=== PATIENT | female | born 1955 | race Caucasian/White ===

== ENCOUNTER 2020-03-15 18:05 | Inpatient (IN) | payer OTHER ==
[~2020-03-15] VITALS: Ht 162.6 cm; Wt 89.2 kg
--- NOTE | 2020-03-15 18:52 | PHYS DOC ---
Past Medical History Past Medical History: Bipolar, Diabetes-Type II, Hypertension, Hypothyroid Drug Use: None General Adult EDM: Chief Complaint: DEPRESSION HPI: HPI: Patient is a 64-year-old female presents with a two-week history of depression. Patient has a history of bipolar disorder and has felt increasingly depressed over the last 2 weeks. Patient states she has suicidal ideation and up until 2 days ago had a plan to drink cleaning detergent. Patient does not have a specific plan at this time. Patient denies any physical complaints other than some decreased p.o. intake due to depression. Review of Systems: Review of Systems: Constitutional: Denies fever or chills. [] Eyes: Denies change in visual acuity. [] HENT: Denies nasal congestion or sore throat. [] Respiratory: Denies cough or shortness of breath. [] Cardiovascular: Denies chest pain or edema. [] GI: Denies abdominal pain, nausea, vomiting, bloody stools or diarrhea. [] : Denies dysuria. [] Musculoskeletal: Denies back pain or joint pain. [] Integument: Denies rash. [] Neurologic: Denies headache, focal weakness or sensory changes. [] Endocrine: Denies polyuria or polydipsia. [] Lymphatic: Denies swollen glands. [] Psychiatric: Reports depression with suicidal ideation without specific plan Heart Score: Risk Factors: Risk Factors: DM, Current or recent (<one month) smoker, HTN, HLP, family history of CAD, obesity. Risk Scores: Score 0 - 3: 2.5% MACE over next 6 weeks - Discharge Home Score 4 - 6: 20.3% MACE over next 6 weeks - Admit for Clinical Observation Score 7 - 10: 72.7% MACE over next 6 weeks - Early Invasive Strategies Physical Exam: PE: Constitutional: Well developed, well nourished, no acute distress, non-toxic appearance. HENT: No trismus, external ears normal Eyes: Conjunctiva clear, EOMI Neck: Normal range of motion, no tenderness, supple, no stridor. Cardiovascular: Regular rate/rhythm, peripheral pulse intact, [employer]PRESENT[employer]IVE intact Lungs & Thorax: No respiratory distress Abdomen: No distension Skin: Diffuse: Intact, no rash Back: Full ROM Extremities: Normal inspection, no edema Neurologic: Alert and oriented X 3, normal motor function, , no focal deficits noted. Psychologic: Depressed mood with flat affect, vague suicidal ideation Current Patient Data: Labs: Laboratory Tests Test 03/15/20 19:32 03/15/20 20:00 03/15/20 22:00 White Blood Count 6.6 x10^3/uL Red Blood Count 4.03 x10^6/uL Hemoglobin 12.9 g/dL Hematocrit 36.7 % Mean Corpuscular Volume 91 fL Mean Corpuscular Hemoglobin 32 pg Mean Corpuscular Hemoglobin Concent 35 g/dL Red Cell Distribution Width 14.9 % Platelet Count 287 x10^3/uL Neutrophils (%) (Auto) 55 % Lymphocytes (%) (Auto) 37 % Monocytes (%) (Auto) 6 % Eosinophils (%) (Auto) 2 % Basophils (%) (Auto) 1 % Neutrophils # (Auto) 3.6 x10^3/uL Lymphocytes # (Auto) 2.4 x10^3/uL Monocytes # (Auto) 0.4 x10^3/uL Eosinophils # (Auto) 0.1 x10^3/uL Basophils # (Auto) 0.0 x10^3/uL Sodium Level 140 mmol/L Potassium Level 4.1 mmol/L Chloride Level 105 mmol/L Carbon Dioxide Level 27 mmol/L Anion Gap 8 Blood Urea Nitrogen 28 mg/dL Creatinine 1.4 mg/dL Estimated GFR (Cockcroft-Gault) 37.9 BUN/Creatinine Ratio 20 Glucose Level 159 mg/dL Calcium Level 9.6 mg/dL Magnesium Level 1.5 mg/dL Total Bilirubin 0.4 mg/dL Aspartate Amino Transf (AST/SGOT) 12 U/L Alanine Aminotransferase (ALT/SGPT) 19 U/L Alkaline Phosphatase 120 U/L Total Protein 7.6 g/dL Albumin 3.8 g/dL Albumin/Globulin Ratio 1.0 Thyroid Stimulating Hormone (TSH) 1.827 uIU/mL Salicylates Level < 2.8 mg/dL Salicylate Last Dose Date 03/15/20 Salicylate Last Dose Time 0900 Acetaminophen Level mcg/ml Acetaminophen Last Dose Date 03/15/20 Acetaminophen Last Dose Time 0900 Valproic Acid (Depakene) Level < 3 mcg/mL Valproic Acid Last Dose Date 03/15/20 Valproic Acid Last Dose Time 0900 Ethyl Alcohol Level < 10 mg/dL Urine Collection Type Unknown Urine Color Yellow Urine Clarity Cloudy Urine pH 5.0 Urine Specific [place] 1.015 Urine Protein 30 mg/dL Urine Glucose (UA) Negative mg/dL Urine Ketones (Stick) Negative mg/dL Urine Blood Small Urine Nitrite Positive Urine Bilirubin Negative Urine Urobilinogen Dipstick 0.2 mg/dL Urine Leukocyte Esterase Large Urine RBC Occ /HPF Urine WBC Tntc /HPF Urine Squamous Epithelial Cells Few /LPF Urine Bacteria Many /HPF Urine Mucus Mod /LPF Urine Opiates Screen Neg Urine Methadone Screen Neg Urine Barbiturates Neg Urine Phencyclidine Screen Neg Urine Amphetamine/Methamphetamine Neg Urine Benzodiazepines Screen Neg Urine Cocaine Screen Neg Urine Cannabinoids Screen Neg Urine Ethyl Alcohol Neg Glucose (Fingerstick) 198 mg/dL Current Medications Medications (Trade) Dose Ordered Sig/Flaquito Route PRN Reason Start Time Stop Time Status Last Admin Dose Admin Atorvastatin Calcium (Lipitor) 40 mg 1X ONCE PO 03/15/20 22:30 03/15/20 22:31 DC 03/15/20 22:31 Nitrofurantoin Macrocrystals (Macrobid) 100 mg 1X ONCE PO 03/15/20 22:30 03/15/20 22:31 DC 03/15/20 22:31 Vital Signs: Vital Signs Date Time Temp Pulse Resp B/P (MAP) Pulse Ox O2 Delivery O2 Flow Rate FiO2 03/15/20 22:45 81 14 106/46 (66) 98 Room Air 03/15/20 22:15 80 14 117/62 (80) 98 Room Air 03/15/20 21:45 84 14 123/69 (87) 99 Room Air 03/15/20 21:15 82 14 127/72 (90) 97 Room Air 03/15/20 20:45 84 14 125/73 (90) 96 Room Air 03/15/20 20:15 90 14 126/70 (88) 96 Room Air 03/15/20 19:45 86 14 131/77 (95) 96 Room Air 03/15/20 19:14 86 14 131/76 (94) 96 Room Air 03/15/20 19:10 98.2 86 16 131/76 (94) 98 Room Air 98.2 EKG: EKG: [] EKG interpreted by me normal sinus rhythm with a rate of 89 normal axis normal intervals normal ST segments, poor baseline due to artifact Radiology/Procedures: Radiology/Procedures: [] Course & Med Decision Making: Course & Med Decision Making Pertinent Labs and Imaging studies reviewed. (See chart for details) [] 64-year-old female presents with depression. Patient has been seen by the behavioral health assessment team and medically cleared by me and will be sent to the [facility]. Anna Disclaimer: Anna Disclaimer: This electronic medical record was generated, in whole or in part, using a voice recognition dictation system. Departure Departure Impression: Primary Impression: Depression Additional Impressions: Suicidal ideation UTI (urinary tract infection) Disposition: TRANSFER OTHER (TO [facility]) Condition: STABLE Referrals: NO PCP (PCP) Patient Instructions: Depression, Adult Scripts Nitrofurantoin Monohyd/M-Cryst (MACROBID 100 MG CAPSULE) 100 Mg Capsule 1 CAP PO BID for 7 Days, #14 CAP 0 Refills Prov: NAGA GREGG MD 03/15/20 Justicifation of Admission Dx: Justifications for Admission: Justification of Admission Dx: N/A NAGA GREGG MD Mar 15, 2020 18:52
[2020-03-15 19:45] LABS: BASO % 1 % (0-3); EOS # 0.1 x10^3/uL (0.0-0.7); EOS % 2 % (0-3); HEMATOCRIT 36.7 % (36.0-47.0); HEMOGLOBIN 12.9 g/dL (12.0-15.5); LYMPH # 2.4 x10^3/uL (1.0-4.8); LYMPH % 37 % (24-48); MEAN CORPUSCULAR HEMOGLOBIN 32 pg (25-35); MEAN CORPUSCULAR HGB CONC 35 g/dL (31-37); MEAN CORPUSCULAR VOLUME 91 fL (79-100); MONO # 0.4 x10^3/uL (0.0-1.1); MONO % 6 % (0-9); NEUT # 3.6 x10^3/uL (1.8-7.7); NEUT % 55 % (31-73); PLATELET COUNT 287 x10^3/uL (140-400); RED BLOOD COUNT 4.03 x10^6/uL (3.50-5.40); RED CELL DISTRIBUTION WIDTH 14.9 % (11.5-14.5); WHITE BLOOD COUNT 6.6 x10^3/uL (4.0-11.0)
[2020-03-15 19:57] LABS: ANION GAP 8 (6-14); BLOOD UREA NITROGEN 28 mg/dL (7-20); BUN/CREATININE RATIO 20 (6-20); CALCIUM 9.6 mg/dL (8.5-10.1); CARBON DIOXIDE 27 mmol/L (21-32); CHLORIDE 105 mmol/L (98-107); CREATININE 1.4 mg/dL (0.6-1.0); GFR 37.9; GLUCOSE 159 mg/dL (70-99); POTASSIUM 4.1 mmol/L (3.5-5.1); SODIUM 140 mmol/L (136-145)
[2020-03-15 20:01] LABS: ETHANOL < 10 mg/dL (0-10); SALIC < 2.8 mg/dL (2.8-20.0)
[2020-03-15 20:04] LABS: ALBUMIN 3.8 g/dL (3.4-5.0); ALK PHOS 120 U/L (46-116); ALT (SGPT) 19 U/L (14-59); AST (SGOT) 12 U/L (15-37); MAGNESIUM 1.5 mg/dL (1.8-2.4); TOTAL BILIRUBIN 0.4 mg/dL (0.2-1.0); TOTAL PROTEIN 7.6 g/dL (6.4-8.2)
[2020-03-15 20:15] LABS: BILIRUBIN,URINE NEGATIVE (NEG); CLARITY,URINE CLOUDY; COLOR,URINE YELLOW; NITRITE,URINE POSITIVE (NEG); PROTEIN,URINE 30 mg/dL (NEG-TRACE); UROBILINOGEN,URINE 0.2 mg/dL (0.2 mg/dL)
[2020-03-15 20:19] LABS: BACTERIA,URINE MANY /HPF (0-FEW); BARBITURATES NEG (NEG); BENZODIAZEPINES NEG (NEG); CANNABINOIDS NEG (NEG); COCAINE NEG (NEG); METHADONE NEG (NEG); OPIATES NEG (NEG); PHENCYCLIDINE NEG (NEG); RBC,URINE OCC /HPF (0-2); WBC,URINE TNTC /HPF (0-4)
[2020-03-15 20:20] LABS: SQUAMOUS EPITHELIAL CELL,UR FEW /LPF
[2020-03-15 20:26] LABS: AMPHETAMINE/METHAMPHETAMINE NEG (NEG)
[2020-03-15] MEDS ORDERED: NITR100C62 PO (22:17)
[2020-03-15 22:19] LABS: VAL ACID < 3 mcg/mL (50-100)
[2020-03-15] MEDS ORDERED: ATORVASTATIN CALCIUM 40 MG TABLET. PO ONE (22:30)
[2020-03-15] MEDS ORDERED: NITROFURANTOIN MONOHYD/M-CRYST 100 MG CAPSULE. PO ONE (22:30)
[2020-03-16 02:08] VITALS: BP 118/75
[2020-03-16] MEDS ORDERED: LEVO75TA5 PO (02:40)
[2020-03-16] MEDS ORDERED: LISI-334 PO (02:40)
[2020-03-16] MEDS ORDERED: MULT1TAB44 PO (02:40)
[2020-03-16] MEDS ORDERED: NIAC500C6 PO (02:40)
[2020-03-16] MEDS ORDERED: GABA-585 PO (02:40)
[2020-03-16] MEDS ORDERED: ATOR40TA59 PO (02:40)
[2020-03-16] MEDS ORDERED: BENZ1TAB5 PO (02:40)
[2020-03-16] MEDS ORDERED: ESCITALOPRAM OX10 MG PO (02:40)
[2020-03-16] MEDS ORDERED: TRAZ-118 PO (02:40)
[2020-03-16] MEDS ORDERED: vitamin d PO (02:40)
[2020-03-16] MEDS ORDERED: OMEG-117 PO (02:40)
[2020-03-16] MEDS ORDERED: DIVA500T17 PO (02:40)
[2020-03-16] MEDS ORDERED: METF10007 PO (02:40)
[2020-03-16 07:06] VITALS: BP 109/66
[2020-03-16] MEDS ORDERED: diphenhydrAMINE 50 MG/ML VIAL IVP PRN (09:00)
[2020-03-16] MEDS ORDERED: ZOLPIDEM 5 MG TABLET. PO PRN (09:00)
[2020-03-16] MEDS ORDERED: DOCUSATE SODIUM 100 MG CAPSULE. PO PRN (09:00)
[2020-03-16] MEDS ORDERED: ONDANSETRON PF 4 MG/2 ML VIAL. IV PRN (09:00)
[2020-03-16] MEDS ORDERED: ACETAMINOPHEN 325 MG TABLET. PO PRN (09:00)
[2020-03-16] MEDS ORDERED: ALBUTEROL SULFATE 2.5 MG/3 ML NEBU. NEB PRN (09:00)
[2020-03-16] MEDS ORDERED: guaiFENesin ORAL 200 MG/10 ML LIQUID. PO PRN (09:00)
[2020-03-16] MEDS ORDERED: LORazepam 0.5 MG TABLET PO PRN (09:00)
[2020-03-16] MEDS: ENOXAPARIN 40 MG/0.4 ML SYRINGE. SQ SCH (09:50)
[2020-03-16] MEDS: AMOXICILLIN/K CLAV 875/125MG TABLET. PO SCH ×2 (09:50→20:06)
[2020-03-16 11:15] VITALS: BP 110/71
--- NOTE | 2020-03-16 14:52 | PDOC1 ---
History and Physical Date of Admission Date of Admission 03/16/2020 Identification/Chief Complaint Chief Complaint Suicidal ideations Source Source: Chart review, Patient History of Present Illness History of Present Illness Patient is a 64-year-old female with past medical history of depression who was in her usual state of health until yesterday when apparently came to the emergency department with suicidal ideations. The patient was also serendipitously found to have a urinary tract infection although the patient denies any CVA tenderness fever no urinary discomfort was reported. The patient at the time of my evaluation is calm and collected and does not seem to have suicidal ideations nevertheless her screening during her ER stay requires her to transition to [facility] for further treatment. The patient denies headache no recent COVID-19 exposure patient denies any upper respiratory tract infection symptoms she denies cough sputum production no fevers have been reported ever since her initial assessment in the emergency department. At the time of this note are COVID-19 test has not been reported, reassurance has been provided to the patient and the plan of care explained in detail. ER history: Emergency Room Patient: CARLA STACK Acct:[id number] Unit: [id number] : 1955 Loc: ER Room/Bed: Age/Sex: 64 / F ADM Status: REG ER ADM Date: 03/15/20 Past Medical History Past Medical History: Bipolar, Diabetes-Type II, Hypertension, Hypothyroid Drug Use: None General Adult EDM: Chief Complaint: DEPRESSION HPI: HPI: Patient is a 64-year-old female presents with a two-week history of depression. Patient has a history of bipolar disorder and has felt increasingly depressed over the last 2 weeks. Patient states she has suicidal ideation and up until 2 days ago had a plan to drink cleaning detergent. Patient does not have a specific plan at this time. Patient denies any physical complaints other than some decreased p.o. intake due to depression. Past Medical History Past Medical History Bipolar, diabetes mellitus type 2, hypertension, hypothyroidism Past Surgical History Past Surgical History: No pertinent history Family History Family History: Other (Pertinent as per HPI otherwise 10 point review of system is negative) Social History Smoke: No ALCOHOL: none Drugs: None Current Problem List Problem List Problems Medical Problems: (1) Depression Status: Acute (2) Suicidal ideation Status: Acute (3) UTI (urinary tract infection) Status: Acute Current Medications Current Medications Current Medications Medications (Trade) Dose Ordered Sig/Flaquito Start Time Stop Time Status Last Admin Dose Admin Acetaminophen (Tylenol) 650 mg PRN Q4HRS PRN 03/16/20 09:00 Albuterol Sulfate (Ventolin Neb Soln) 2.5 mg PRN Q4HRS PRN 03/16/20 09:00 Amoxicillin/ Clavulanate Potassium (Augmentin 875/ 125mg) 1 tab BID 03/16/20 09:00 03/16/20 09:50 1 TAB Atorvastatin Calcium (Lipitor) 40 mg 1X ONCE 03/15/20 22:30 03/15/20 22:31 DC 03/15/20 22:31 40 MG Diphenhydramine HCl (Benadryl) 25 mg PRN Q4HRS PRN 03/16/20 09:00 Docusate Sodium (Colace) 100 mg PRN BID PRN 03/16/20 09:00 Enoxaparin Sodium (Lovenox 40mg Syringe) 40 mg Q24H 03/16/20 09:00 03/16/20 09:50 40 MG Guaifenesin (Robitussin) 200 mg PRN Q4HRS PRN 03/16/20 09:00 Lorazepam (Ativan) 0.5 mg PRN Q4HRS PRN 03/16/20 09:00 Nitrofurantoin Macrocrystals (Macrobid) 100 mg 1X ONCE 03/15/20 22:30 03/15/20 22:31 DC 03/15/20 22:31 100 MG Ondansetron HCl (Zofran) 4 mg PRN Q4HRS PRN 03/16/20 09:00 Zolpidem Tartrate (Ambien) 5 mg PRN QHS PRN 03/16/20 09:00 Allergies Allergies Allergies Coded Allergies Type Severity Reaction Last Updated Verified niacin Allergy Intermediate "FLUSH RED" 03/15/20 Yes ROS Review of System CONSTITUTIONAL: No fever or chills EYES: No recent changes SKIN: No rash or itching CARDIOVASCULAR: No chest pain, syncope, palpitations, or edema RESPIRATORY: No SOB or cough GASTROINTESTINAL: No nausea, vomiting or abdominal pain NEUROLOGICAL: No headaches or weakness ENDOCRINE: No cold or heat intolerance GENITOURINARY: No urgency or frequency of urination MUSCULOSKELETAL: No back pain or joint pain LYMPHATICS: No enlarged lymph nodes PSYCHIATRIC: No anxiety or depression Physical Exam Physical Exam GEN.: No apparent distress. Alert and oriented. HEENT: Head is normocephalic, atraumatic NECK: Supple. LUNGS: Clear to auscultation. HEART: RRR, S1, S2 present. Peripheral pulses intact ABDOMEN: Soft, nontender. Positive bowel sounds. EXTREMITIES: Without any cyanosis. NEUROLOGIC: Normal speech, normal tone PSYCHIATRIC: Normal affect, normal mood. SKIN: No ulcerations Vitals Vitals Vital Signs Date Time Temp Pulse Resp B/P (MAP) Pulse Ox O2 Delivery O2 Flow Rate FiO2 03/16/20 11:15 98.3 85 14 110/71 (84) 97 Room Air 98.3 Labs Labs Laboratory Tests Test 03/15/20 19:32 03/15/20 20:00 03/15/20 22:00 White Blood Count 6.6 x10^3/uL (4.0-11.0) Red Blood Count 4.03 x10^6/uL (3.50-5.40) Hemoglobin 12.9 g/dL (12.0-15.5) Hematocrit 36.7 % (36.0-47.0) Mean Corpuscular Volume 91 fL (79-100) Mean Corpuscular Hemoglobin 32 pg (25-35) Mean Corpuscular Hemoglobin Concent 35 g/dL (31-37) Red Cell Distribution Width 14.9 % (11.5-14.5) Platelet Count 287 x10^3/uL (140-400) Neutrophils (%) (Auto) 55 % (31-73) Lymphocytes (%) (Auto) 37 % (24-48) Monocytes (%) (Auto) 6 % (0-9) Eosinophils (%) (Auto) 2 % (0-3) Basophils (%) (Auto) 1 % (0-3) Neutrophils # (Auto) 3.6 x10^3/uL (1.8-7.7) Lymphocytes # (Auto) 2.4 x10^3/uL (1.0-4.8) Monocytes # (Auto) 0.4 x10^3/uL (0.0-1.1) Eosinophils # (Auto) 0.1 x10^3/uL (0.0-0.7) Basophils # (Auto) 0.0 x10^3/uL (0.0-0.2) Sodium Level 140 mmol/L (136-145) Potassium Level 4.1 mmol/L (3.5-5.1) Chloride Level 105 mmol/L (98-107) Carbon Dioxide Level 27 mmol/L (21-32) Anion Gap 8 (6-14) Blood Urea Nitrogen 28 mg/dL (7-20) Creatinine 1.4 mg/dL (0.6-1.0) Estimated GFR (Cockcroft-Gault) 37.9 BUN/Creatinine Ratio 20 (6-20) Glucose Level 159 mg/dL (70-99) Calcium Level 9.6 mg/dL (8.5-10.1) Magnesium Level 1.5 mg/dL (1.8-2.4) Total Bilirubin 0.4 mg/dL (0.2-1.0) Aspartate Amino Transf (AST/SGOT) 12 U/L (15-37) Alanine Aminotransferase (ALT/SGPT) 19 U/L (14-59) Alkaline Phosphatase 120 U/L (46-116) Total Protein 7.6 g/dL (6.4-8.2) Albumin 3.8 g/dL (3.4-5.0) Albumin/Globulin Ratio 1.0 (1.0-1.7) Thyroid Stimulating Hormone (TSH) 1.827 uIU/mL (0.358-3.74) Salicylates Level < 2.8 mg/dL (2.8-20.0) Salicylate Last Dose Date 03/15/20 Salicylate Last Dose Time 0900 Acetaminophen Level mcg/ml (10-30) Acetaminophen Last Dose Date 03/15/20 Acetaminophen Last Dose Time 0900 Valproic Acid (Depakene) Level < 3 mcg/mL (50-100) Valproic Acid Last Dose Date 03/15/20 Valproic Acid Last Dose Time 0900 Ethyl Alcohol Level < 10 mg/dL (0-10) Urine Collection Type Unknown Urine Color Yellow Urine Clarity Cloudy Urine pH 5.0 (<5.0-8.0) Urine Specific [place] 1.015 (1.000-1.030) Urine Protein 30 mg/dL (NEG-TRACE) Urine Glucose (UA) Negative mg/dL (NEG) Urine Ketones (Stick) Negative mg/dL (NEG) Urine Blood Small (NEG) Urine Nitrite Positive (NEG) Urine Bilirubin Negative (NEG) Urine Urobilinogen Dipstick 0.2 mg/dL (0.2 mg/dL) Urine Leukocyte Esterase Large (NEG) Urine RBC Occ /HPF (0-2) Urine WBC Tntc /HPF (0-4) Urine Squamous Epithelial Cells Few /LPF Urine Bacteria Many /HPF (0-FEW) Urine Mucus Mod /LPF Urine Opiates Screen Neg (NEG) Urine Methadone Screen Neg (NEG) Urine Barbiturates Neg (NEG) Urine Phencyclidine Screen Neg (NEG) Urine Amphetamine/Methamphetamine Neg (NEG) Urine Benzodiazepines Screen Neg (NEG) Urine Cocaine Screen Neg (NEG) Urine Cannabinoids Screen Neg (NEG) Urine Ethyl Alcohol Neg (NEG) Glucose (Fingerstick) 198 mg/dL (70-99) Laboratory Tests Test 03/15/20 19:32 03/15/20 20:00 03/15/20 22:00 White Blood Count 6.6 x10^3/uL (4.0-11.0) Red Blood Count 4.03 x10^6/uL (3.50-5.40) Hemoglobin 12.9 g/dL (12.0-15.5) Hematocrit 36.7 % (36.0-47.0) Mean Corpuscular Volume 91 fL (79-100) Mean Corpuscular Hemoglobin 32 pg (25-35) Mean Corpuscular Hemoglobin Concent 35 g/dL (31-37) Red Cell Distribution Width 14.9 % (11.5-14.5) Platelet Count 287 x10^3/uL (140-400) Neutrophils (%) (Auto) 55 % (31-73) Lymphocytes (%) (Auto) 37 % (24-48) Monocytes (%) (Auto) 6 % (0-9) Eosinophils (%) (Auto) 2 % (0-3) Basophils (%) (Auto) 1 % (0-3) Neutrophils # (Auto) 3.6 x10^3/uL (1.8-7.7) Lymphocytes # (Auto) 2.4 x10^3/uL (1.0-4.8) Monocytes # (Auto) 0.4 x10^3/uL (0.0-1.1) Eosinophils # (Auto) 0.1 x10^3/uL (0.0-0.7) Basophils # (Auto) 0.0 x10^3/uL (0.0-0.2) Sodium Level 140 mmol/L (136-145) Potassium Level 4.1 mmol/L (3.5-5.1) Chloride Level 105 mmol/L (98-107) Carbon Dioxide Level 27 mmol/L (21-32) Anion Gap 8 (6-14) Blood Urea Nitrogen 28 mg/dL (7-20) Creatinine 1.4 mg/dL (0.6-1.0) Estimated GFR (Cockcroft-Gault) 37.9 BUN/Creatinine Ratio 20 (6-20) Glucose Level 159 mg/dL (70-99) Calcium Level 9.6 mg/dL (8.5-10.1) Magnesium Level 1.5 mg/dL (1.8-2.4) Total Bilirubin 0.4 mg/dL (0.2-1.0) Aspartate Amino Transf (AST/SGOT) 12 U/L (15-37) Alanine Aminotransferase (ALT/SGPT) 19 U/L (14-59) Alkaline Phosphatase 120 U/L (46-116) Total Protein 7.6 g/dL (6.4-8.2) Albumin 3.8 g/dL (3.4-5.0) Albumin/Globulin Ratio 1.0 (1.0-1.7) Thyroid Stimulating Hormone (TSH) 1.827 uIU/mL (0.358-3.74) Salicylates Level < 2.8 mg/dL (2.8-20.0) Salicylate Last Dose Date 03/15/20 Salicylate Last Dose Time 0900 Acetaminophen Level mcg/ml (10-30) Acetaminophen Last Dose Date 03/15/20 Acetaminophen Last Dose Time 0900 Valproic Acid (Depakene) Level < 3 mcg/mL (50-100) Valproic Acid Last Dose Date 03/15/20 Valproic Acid Last Dose Time 0900 Ethyl Alcohol Level < 10 mg/dL (0-10) Urine Collection Type Unknown Urine Color Yellow Urine Clarity Cloudy Urine pH 5.0 (<5.0-8.0) Urine Specific [place] 1.015 (1.000-1.030) Urine Protein 30 mg/dL (NEG-TRACE) Urine Glucose (UA) Negative mg/dL (NEG) Urine Ketones (Stick) Negative mg/dL (NEG) Urine Blood Small (NEG) Urine Nitrite Positive (NEG) Urine Bilirubin Negative (NEG) Urine Urobilinogen Dipstick 0.2 mg/dL (0.2 mg/dL) Urine Leukocyte Esterase Large (NEG) Urine RBC Occ /HPF (0-2) Urine WBC Tntc /HPF (0-4) Urine Squamous Epithelial Cells Few /LPF Urine Bacteria Many /HPF (0-FEW) Urine Mucus Mod /LPF Urine Opiates Screen Neg (NEG) Urine Methadone Screen Neg (NEG) Urine Barbiturates Neg (NEG) Urine Phencyclidine Screen Neg (NEG) Urine Amphetamine/Methamphetamine Neg (NEG) Urine Benzodiazepines Screen Neg (NEG) Urine Cocaine Screen Neg (NEG) Urine Cannabinoids Screen Neg (NEG) Urine Ethyl Alcohol Neg (NEG) Glucose (Fingerstick) 198 mg/dL (70-99) VTE Prophylaxis Ordered VTE Prophylaxis Devices: Yes VTE Pharmacological Prophylaxi: No Assessment/Plan Assessment/Plan Urinary tract infection awaiting culture Suicidal ideation History of hypertension currently well controlled Diabetes mellitus type 2 Hypothyroidism acquired Plan: Awaiting for placement Resume home medications Further recommendations based on the clinical course DVT prophylaxis with SCDs Justicifation of Admission Dx: Justifications for Admission: Justification of Admission Dx: N/A ROMAN SIMMS MD Mar 16, 2020 14:51
[2020-03-16 15:05] VITALS: BP 102/62
[2020-03-16] MEDS: metFORMIN 500 MG TABLET PO SCH (17:34)
[2020-03-16 18:50] VITALS: BP 115/71
[2020-03-16] MEDS: CHOLECALCIFEROL (VITAMIN D3) 1,000 UNIT TABLET PO SCH (20:06)
[2020-03-16] MEDS: DIVALPROEX EXTENDED RELEASE 500 MG TAB.ER.24H. PO SCH (20:06)
[2020-03-16] MEDS: OMEGA-3 FATTY ACIDS/FISH OIL 1,000 MG CAPSULE. PO SCH (20:06)
[2020-03-16] MEDS: GABAPENTIN 100 MG CAPSULE. PO SCH (20:06)
[2020-03-16] MEDS ORDERED: ATORVASTATIN CALCIUM 40 MG TABLET. PO SCH (21:00)
[2020-03-16] MEDS ORDERED: NIACIN ER 250 MG CAPSULE.ER PO SCH (21:00)
[2020-03-16] MEDS ORDERED: traZODone 50 MG TABLET. PO SCH (21:00)
[2020-03-16 23:15] VITALS: BP 105/68
[2020-03-17 03:20] VITALS: BP 108/70
[2020-03-17 07:00] VITALS: BP 96/58
[2020-03-17] MEDS ORDERED: LEVOTHYROXINE 75 MCG TABLET PO SCH (07:30)
[2020-03-17] MEDS: DIVALPROEX EXTENDED RELEASE 500 MG TAB.ER.24H. PO SCH (09:00)
[2020-03-17] MEDS ORDERED: LISINOPRIL 20 MG TABLET PO SCH (09:00)
[2020-03-17] MEDS ORDERED: CITALOPRAM 20 MG TABLET. PO SCH (09:00)
[2020-03-17] MEDS ORDERED: BENZTROPINE MESYLATE 1 MG TABLET. PO SCH (09:00)
[2020-03-17] MEDS ORDERED: MULTIVITAMIN with MINERAL TABLET. PO SCH (09:00)
--- NOTE | 2020-03-17 10:09 | NUR ---
PATRICIA following. Discussed with RN. Pt seen by AD[facility], plan is for [facility] pending COVID result. Jus coming back to see pt today. PATRCIIA will continue to follow. Addendum: 03/17/20 at 1350 by SONY GOMEZ Pt does not need COVID test for [facility], confirmed by Jus with [facility]. Pt discharging to [facility] today via [facility] at 1430. Dr. Silke lee with discharge. RN notified.
[2020-03-17] MEDS: GABAPENTIN 100 MG CAPSULE. PO SCH (10:24)
[2020-03-17] MEDS: AMOXICILLIN/K CLAV 875/125MG TABLET. PO SCH (10:24)
[2020-03-17] MEDS: CHOLECALCIFEROL (VITAMIN D3) 1,000 UNIT TABLET PO SCH (10:24)
[2020-03-17] MEDS: OMEGA-3 FATTY ACIDS/FISH OIL 1,000 MG CAPSULE. PO SCH (10:25)
[2020-03-17] MEDS: metFORMIN 500 MG TABLET PO SCH (10:26)
[2020-03-17] MEDS: ENOXAPARIN 40 MG/0.4 ML SYRINGE. SQ SCH (10:28)
[2020-03-17 11:00] VITALS: BP 114/53
[2020-03-17] MEDS ORDERED: AMOX1TAB11 PO (13:19)
--- NOTE | 2020-03-17 15:06 | PDOC3 ---
Discharge Summary Visit Information Date of Admission: Mar 16, 2020 Date of Discharge: Mar 17, 2020 Admitting Diagnosis Comment: Assessment/Plan Urinary tract infection awaiting culture Suicidal ideation History of hypertension currently well controlled Diabetes mellitus type 2 Hypothyroidism acquired Final Diagnosis Problems Medical Problems: (1) Depression Status: Acute (2) Suicidal ideation Status: Acute (3) UTI (urinary tract infection) secondary to E coli. Status: Acute Assessment/Plan Urinary tract infection awaiting culture sensitivities but empirically will treat with Augmentin. Suicidal ideation History of hypertension currently well controlled Diabetes mellitus type 2 Hypothyroidism acquired Brief Hospital Course Allergies Allergies Coded Allergies Type Severity Reaction Last Updated Verified niacin Adverse Reaction Intermediate "FLUSH RED" 03/16/20 Yes Vital Signs Vital Signs Date Time Temp Pulse Resp B/P (MAP) Pulse Ox O2 Delivery O2 Flow Rate FiO2 03/17/20 11:00 98.2 70 16 114/53 (73) 98 Room Air 98.2 Lab Results Laboratory Tests Test 03/15/20 19:32 03/15/20 20:00 03/15/20 22:00 White Blood Count 6.6 x10^3/uL (4.0-11.0) Red Blood Count 4.03 x10^6/uL (3.50-5.40) Hemoglobin 12.9 g/dL (12.0-15.5) Hematocrit 36.7 % (36.0-47.0) Mean Corpuscular Volume 91 fL (79-100) Mean Corpuscular Hemoglobin 32 pg (25-35) Mean Corpuscular Hemoglobin Concent 35 g/dL (31-37) Red Cell Distribution Width 14.9 % (11.5-14.5) Platelet Count 287 x10^3/uL (140-400) Neutrophils (%) (Auto) 55 % (31-73) Lymphocytes (%) (Auto) 37 % (24-48) Monocytes (%) (Auto) 6 % (0-9) Eosinophils (%) (Auto) 2 % (0-3) Basophils (%) (Auto) 1 % (0-3) Neutrophils # (Auto) 3.6 x10^3/uL (1.8-7.7) Lymphocytes # (Auto) 2.4 x10^3/uL (1.0-4.8) Monocytes # (Auto) 0.4 x10^3/uL (0.0-1.1) Eosinophils # (Auto) 0.1 x10^3/uL (0.0-0.7) Basophils # (Auto) 0.0 x10^3/uL (0.0-0.2) Sodium Level 140 mmol/L (136-145) Potassium Level 4.1 mmol/L (3.5-5.1) Chloride Level 105 mmol/L (98-107) Carbon Dioxide Level 27 mmol/L (21-32) Anion Gap 8 (6-14) Blood Urea Nitrogen 28 mg/dL (7-20) Creatinine 1.4 mg/dL (0.6-1.0) Estimated GFR (Cockcroft-Gault) 37.9 BUN/Creatinine Ratio 20 (6-20) Glucose Level 159 mg/dL (70-99) Calcium Level 9.6 mg/dL (8.5-10.1) Magnesium Level 1.5 mg/dL (1.8-2.4) Total Bilirubin 0.4 mg/dL (0.2-1.0) Aspartate Amino Transf (AST/SGOT) 12 U/L (15-37) Alanine Aminotransferase (ALT/SGPT) 19 U/L (14-59) Alkaline Phosphatase 120 U/L (46-116) Total Protein 7.6 g/dL (6.4-8.2) Albumin 3.8 g/dL (3.4-5.0) Albumin/Globulin Ratio 1.0 (1.0-1.7) Thyroid Stimulating Hormone (TSH) 1.827 uIU/mL (0.358-3.74) Salicylates Level < 2.8 mg/dL (2.8-20.0) Salicylate Last Dose Date 03/15/20 Salicylate Last Dose Time 0900 Acetaminophen Level mcg/ml (10-30) Acetaminophen Last Dose Date 03/15/20 Acetaminophen Last Dose Time 0900 Valproic Acid (Depakene) Level < 3 mcg/mL (50-100) Valproic Acid Last Dose Date 03/15/20 Valproic Acid Last Dose Time 0900 Ethyl Alcohol Level < 10 mg/dL (0-10) Urine Collection Type Unknown Urine Color Yellow Urine Clarity Cloudy Urine pH 5.0 (<5.0-8.0) Urine Specific [place] 1.015 (1.000-1.030) Urine Protein 30 mg/dL (NEG-TRACE) Urine Glucose (UA) Negative mg/dL (NEG) Urine Ketones (Stick) Negative mg/dL (NEG) Urine Blood Small (NEG) Urine Nitrite Positive (NEG) Urine Bilirubin Negative (NEG) Urine Urobilinogen Dipstick 0.2 mg/dL (0.2 mg/dL) Urine Leukocyte Esterase Large (NEG) Urine RBC Occ /HPF (0-2) Urine WBC Tntc /HPF (0-4) Urine Squamous Epithelial Cells Few /LPF Urine Bacteria Many /HPF (0-FEW) Urine Mucus Mod /LPF Urine Opiates Screen Neg (NEG) Urine Methadone Screen Neg (NEG) Urine Barbiturates Neg (NEG) Urine Phencyclidine Screen Neg (NEG) Urine Amphetamine/Methamphetamine Neg (NEG) Urine Benzodiazepines Screen Neg (NEG) Urine Cocaine Screen Neg (NEG) Urine Cannabinoids Screen Neg (NEG) Urine Ethyl Alcohol Neg (NEG) Glucose (Fingerstick) 198 mg/dL (70-99) Brief Hospital Course History of Present Illness History of Present Illness Patient is a 64-year-old female with past medical history of depression who was in her usual state of health until yesterday when apparently came to the emergency department with suicidal ideations. The patient was also serendipitously found to have a urinary tract infection although the patient denies any CVA tenderness fever no urinary discomfort was reported. The patient at the time of my evaluation is calm and collected and does not seem to have suicidal ideations nevertheless her screening during her ER stay requires her to transition to I for further treatment. The patient denies headache no recent COVID-19 exposure patient denies any upper respiratory tract infection symptoms she denies cough sputum production no fevers have been reported ever since her initial assessment in the emergency department. At the time of this note are COVID-19 test has not been reported, reassurance has been provided to the patient and the plan of care explained in detail. Patient started on broad-spectrum antibiotics and she will continue with amoxicillin with clavulanic acid for 3 more days. Patient was accepted a our local psych unit where she will continue with her treatment plan. She is in good spirits to be discharged home hopefully she stabilizes from the psychiatric standpoint of view. Very uneventful hospital stay reassurance provided all of her concerns were addressed to the best of my abilities Gen.: well-developed well-nourished in no apparent distress Head: Normal shape atraumatic Eyes: Pupils equal reactive to light and accommodation, normal conjunctivae and lids Ears: Normal shape Nose: Normal shape no trauma Mouth: No exudates of the back of throat no thrush no lesions Neck: Supple no JVD no carotid bruit or lymphadenopathy no thyromegaly Chest: Lungs clear to auscultation with good inspiratory effort no crackles rales or rhonchi Cardiovascular: S1-S2 regular rhythm no murmurs gallops or rubs Abdomen: Bowel sounds present soft nontender no hepatosplenomegaly appreciated sign Extremities: No clubbing no cyanosis no edema peripheral pulses palpated bilaterally Neurological: Alert awake oriented in person time place and situation, cranial nerves II through XII intact, no motor or sensory deficits appreciated Psych: Appropriate mood, cooperative Discharge Information Condition at Discharge: Improved Follow Up: Weeks Disposition/Orders: D/C to Home Scheduled Amoxicillin/Potassium Clav (Amox Tr-K Clv 875-125 Mg Tab) 1 Each Tablet, 1 TAB PO BID for UTI for 3 Days, #6 Prescribed by: ROMAN SIMMS MD on 03/17/20 1319 Atorvastatin Calcium (Atorvastatin Calcium) 40 Mg Tablet, 1 TAB PO QHS for cholesterol, #90 Ref 3 (Reported) Entered as Reported by: LUANNE KRAMER on 03/16/20239 Last Action: Continued on 03/16/201452 by ROMAN SIMMS MD Benztropine Mesylate (Benztropine Mesylate) 1 Mg Tablet, 1 MG PO DAILY for tremors, (Reported) Entered as Reported by: LUANNE KRAMER on 03/16/20239 Last Action: Continued on 03/16/201452 by ROMAN SIMMS MD Divalproex Sodium (Divalproex Sodium Er) 500 Mg Tab.er.24h, 1 TAB PO BID for mood, #60 (Reported) Entered as Reported by: LUANNE KRAMER on 03/16/20239 Last Action: Continued on 03/16/201452 by ROMAN SIMMS MD Escitalopram Oxalate (Escitalopram Oxalate) 10 Mg Tablet, 1 TAB PO DAILY for mood, #30 Ref 3 (Reported) Entered as Reported by: LUANNE KRAMER on 03/16/20239 Last Action: Converted on 03/16/201452 by ROMAN SIMMS MD Gabapentin (Gabapentin ) 100 Mg Capsule, 100 MG PO BID for NEUROGENIC PAIN, (Reported) Entered as Reported by: LUANNE KRAMER on 03/16/20239 Last Action: Continued on 03/16/201452 by ROMAN SIMMS MD Levothyroxine Sodium (Levothyroxine Sodium) 75 Mcg Tablet, 75 MCG PO DAILYAC for THYROID SUPPLEMENT, #30 Ref 0 (Reported) Entered as Reported by: LUANNE KRAMER on 03/16/20239 Last Action: Continued on 03/16/201452 by ROMAN SIMMS MD Lisinopril (Lisinopril) 20 Mg Tablet, 1 TAB PO DAILY for bp, #30 Ref 5 (Reported) Entered as Reported by: LUANNE KRAMER on 03/16/20239 Last Action: Continued on 03/16/201452 by ROMAN SIMMS MD Metformin Hcl (Metformin Hcl) 1,000 Mg Tablet, 1,000 MG PO BIDWMEALS for blood sugar, (Reported) Entered as Reported by: LUANNE KRAMER on 03/16/20239 Last Action: Converted on 03/16/201452 by ROMAN SIMMS MD Multivitamin W-Minerals/Lutein (Cerovite Senior Tablet) 1 Each Tablet, 1 EACH PO DAILY for supp, (Reported) Entered as Reported by: LUANNE KRAMER on 03/16/20239 Last Action: Converted on 03/16/201452 by ROMAN SIMMS MD Niacin (Inositol Niacinate) (Niacin 500 Mg Capsule) 500 Mg Capsule, 1 CAP PO BID for supp for 30 Days, #60 Ref 0 (Reported) Entered as Reported by: LUANNE KRAMER on 03/16/20239 Last Action: Converted on 03/16/201452 by ROMAN SIMMS MD [place] Ari-3/Dha/Epa/Fish Oil (Fish Oil 1,200 mg Softgel) 1 Each Capsule.dr, 1 CAP PO BID for cholesterol for 30 Days, #60 Ref 0 (Reported) Entered as Reported by: LUANNE KRAMER on 03/16/20239 Last Action: Converted on 03/16/201452 by ROMAN SIMMS MD Trazodone Hcl (Trazodone Hcl) 50 Mg Tablet, 1 TAB PO QHS for sleep, #30 Ref 1 (Reported) Entered as Reported by: LUANNE KRAMER on 03/16/20239 Last Action: Continued on 03/16/201452 by ROMAN SIMMS MD [vitamin d] , 1 TAB PO BID for vit d deficiency\\, (Reported) Vitamin D 1000 IU tab, take one tab PO BID. Entered as Reported by: LUANNE KRAMER on 03/16/20239 Last Action: Converted on 03/16/201452 by ROMAN SIMMS MD Justicifation of Admission Dx: Justifications for Admission: Justification of Admission Dx: N/A ROMAN SIMMS MD Mar 17, 2020 15:06
--- NOTE | 2020-03-17 15:24 | NUR ---
Discharge Note: RANDA STACK [place] Discharge instructions and discharge home medications reviewed with Other facility and a copy given. All questions have been answered and understanding verbalized. The following instructions and handouts were given: follow up instructions given Discontinued lines and drains: catheter tip intact. Patient tolerated well Patient discharged to [facility] for treatment.
--- NOTE | 2020-03-17 15:49 | NUR ---
Discharge Note: RANDA STACK [place] Discharge instructions and discharge home medications reviewed with and a copy given. All questions have been answered and understanding verbalized. The following instructions and handouts were given: discharge instructions given to EMS. Discontinued lines and drains: catheter tip intact. Patient tolerated well. Patient discharged to [facility] via EMS at 1526 hours. Notified IFRAH Mejia ([facility]) and gave report.
--- NOTE | 2020-03-18 03:16 | EKG ---
[facility] [address] [place] [address] Test Date: 2020-03-15 Test Time: 19:09:54 Pat Name: CARLA STACK Department: Room: Gender: F Kelp Gatherer: : 1955 Requested By: NAGA GREGG Order Number: [id number] Reading MD: Measurements Intervals [place] Rate: 89 P: 18 SC: 148 QRS: 29 QRSD: 92 T: 56 QT: 366 QTc: 452 Interpretive Statements SINUS RHYTHM NO SPECIFIC ECG ABNORMALITIES RI6.01 No previous ECG available for comparison
== END 2020-03-17 15:24 | disposition short-term general hospital (02) | DRG 690 ==
LOC: ER 18:05 → 5 NORTH 23:43 → OBSVTOIN 03-16 20:41
PROVIDERS: ADMIT Internal Medicine; ATTEND Internal Medicine
DX: N39.0 Urinary tract infection, site not specified (principal); R45.851 Suicidal ideations; B96.20 Unspecified Escherichia coli [E. coli] as the cause of diseases classified elsewhere; E11.9 Type 2 diabetes mellitus without complications; E03.9 Hypothyroidism, unspecified; F31.9 Bipolar disorder, unspecified; I10 Essential (primary) hypertension; Z20.828 Contact with and (suspected) exposure to other viral communicable diseases; Z79.899 Other long term (current) drug therapy; Z88.8 Allergy status to other drugs, medicaments and biological substances
CPT/HCPCS: 36415; 80053; 80164; 80307; 80329; 81001; 82962; 83735; 84443; 85025; 87086; 93005; 99285; G0378; G0379; G0480; J1650; U0003-CS

== ENCOUNTER 2020-03-19 10:43 | Emergency (ER) | payer OTHER ==
[~2020-03-19] VITALS: Ht 162.6 cm; Wt 90.0 kg
[~2020-03-19 10:43] MED LIST: AMOX1TAB11 PO; ATOR40TA59 PO; BENZ1TAB5 PO; DIVA500T17 PO; ESCITALOPRAM OX10 MG PO; GABA-585 PO; LEVO75TA5 PO; LISI-334 PO; METF10007 PO; MULT1TAB44 PO; NIAC500C6 PO; NITR100C62 PO; OMEG-117 PO; TRAZ-118 PO; vitamin d PO
[2020-03-19] MEDS ORDERED: IV NORMAL SALINE 1000ML BAG 1,000 ML IV SCH (11:24)
[2020-03-19] MEDS ORDERED: LIDO:MAALOX 1:1 20 ML SINGLE DOSE. SWSW ONE (11:30)
[2020-03-19] MEDS ORDERED: ONDANSETRON PF 4 MG/2 ML VIAL. IVP ONE (11:30)
[2020-03-19 12:00] LABS: BASO % 0 % (0-3); EOS # 0.2 x10^3/uL (0.0-0.7); EOS % 2 % (0-3); HEMATOCRIT 34.3 % (36.0-47.0); HEMOGLOBIN 11.7 g/dL (12.0-15.5); LYMPH # 1.3 x10^3/uL (1.0-4.8); LYMPH % 11 % (24-48); MEAN CORPUSCULAR HEMOGLOBIN 31 pg (25-35); MEAN CORPUSCULAR HGB CONC 34 g/dL (31-37); MEAN CORPUSCULAR VOLUME 92 fL (79-100); MONO # 0.4 x10^3/uL (0.0-1.1); MONO % 4 % (0-9); NEUT # 9.8 x10^3/uL (1.8-7.7); NEUT % 83 % (31-73); PLATELET COUNT 248 x10^3/uL (140-400); RED BLOOD COUNT 3.72 x10^6/uL (3.50-5.40); RED CELL DISTRIBUTION WIDTH 15.2 % (11.5-14.5); WHITE BLOOD COUNT 11.8 x10^3/uL (4.0-11.0)
[2020-03-19 12:07] LABS: BILIRUBIN,URINE NEGATIVE (NEG); CLARITY,URINE CLOUDY; COLOR,URINE YELLOW; NITRITE,URINE NEGATIVE (NEG); PH,URINE 5.5 (<5.0-8.0); PROTEIN,URINE 30 mg/dL (NEG-TRACE); UROBILINOGEN,URINE 0.2 mg/dL (0.2 mg/dL)
[2020-03-19 12:11] LABS: CALCIUM 9.2 mg/dL (8.5-10.1); CREATININE 1.3 mg/dL (0.6-1.0); GFR 41.2; POTASSIUM 4.9 mmol/L (3.5-5.1)
[2020-03-19 12:14] LABS: WBC,URINE TNTC /HPF (0-4)
[2020-03-19 12:15] LABS: BACTERIA,URINE FEW /HPF (0-FEW)
[2020-03-19 12:16] LABS: ALBUMIN 3.2 g/dL (3.4-5.0); ALBUMIN/GLOBULIN RATIO 0.9 (1.0-1.7); TOTAL BILIRUBIN 0.3 mg/dL (0.2-1.0); TOTAL PROTEIN 6.6 g/dL (6.4-8.2)
--- NOTE | 2020-03-19 12:22 | PHYS DOC ---
Past Medical History Past Medical History: Bipolar, Diabetes-Type II, Hypertension, Hypothyroid Additional Past Medical Histor: RIGHT HAND TREMOR Past Surgical History: Other Additional Past Surgical Histo: RIGHT KNEE Smoking Status: Never Smoker Alcohol Use: None Drug Use: None General Adult EDM: Chief Complaint: NAUSEA/VOMITING/DIARRHA HPI: HPI: Patient is a 64 year old female presents with a chief complaint of nausea. Patient is at the [facility] for depression. And went down to have breakfast and took a niacin pill and felt like it got stuck in her esophagus and she started choking and having a nausea. Patient did not have significant vomiting. Patient has shortness of breath. Patient has no abdominal pain or diarrhea. Patient states she feels back to normal. Review of Systems: Review of Systems: Constitutional: Denies fever or chills. [] Eyes: Denies change in visual acuity. [] HENT: Denies nasal congestion or sore throat. [] Respiratory: Denies cough or shortness of breath. [] Cardiovascular: Denies chest pain or edema. [] GI: Complains of nausea but no abdominal pain or diarrhea : Denies dysuria. [] Musculoskeletal: Denies back pain or joint pain. [] Integument: Denies rash. [] Neurologic: Denies headache, focal weakness or sensory changes. [] Endocrine: Denies polyuria or polydipsia. [] Lymphatic: Denies swollen glands. [] Psychiatric: Denies depression or anxiety. [] Heart Score: Risk Factors: Risk Factors: DM, Current or recent (<one month) smoker, HTN, HLP, family history of CAD, obesity. Risk Scores: Score 0 - 3: 2.5% MACE over next 6 weeks - Discharge Home Score 4 - 6: 20.3% MACE over next 6 weeks - Admit for Clinical Observation Score 7 - 10: 72.7% MACE over next 6 weeks - Early Invasive Strategies Current Medications: Current Medications Medications (Trade) Dose Ordered Sig/Flaquito Start Time Stop Time Status Last Admin Dose Admin Multi-Ingredient Mouthwash/Gargle (Gi Cocktail) 20 ml 1X ONCE 03/19/20 11:30 03/19/20 11:31 DC 03/19/20 11:44 20 ML Ondansetron HCl (Zofran) 4 mg 1X ONCE 03/19/20 11:30 03/19/20 11:31 DC 03/19/20 11:44 4 MG Sodium Chloride 1,000 ml @ 1,000 mls/hr Q1H 03/19/20 11:24 03/19/20 12:23 03/19/20 11:46 1,000 MLS/HR Allergies: Allergies: Allergies Coded Allergies Type Severity Reaction Last Updated Verified niacin Adverse Reaction Intermediate "FLUSH RED" 03/16/20 Yes Physical Exam: PE: Constitutional: Well developed, well nourished, no acute distress, non-toxic appearance. HENT: No trismus, external ears normal Eyes: Conjunctiva clear, EOMI Neck: Normal range of motion, no tenderness, supple, no stridor. Cardiovascular: Regular rate/rhythm, peripheral pulse intact, [employer] SUPERINTENDENT intact Lungs & Thorax: No respiratory distress Abdomen: No distension, nontender, no guarding or rebound, no pulsatile masses Skin: Diffuse: Intact, no rash Back: Full ROM Extremities: Normal inspection, no edema Neurologic: Alert and oriented X 3, normal motor function, , no focal deficits noted. Psychologic: Depressed mood Current Patient Data: Labs: Laboratory Tests Test 03/19/20 11:00 03/19/20 11:42 White Blood Count 11.8 x10^3/uL (4.0-11.0) H Red Blood Count 3.72 x10^6/uL (3.50-5.40) Hemoglobin 11.7 g/dL (12.0-15.5) L Hematocrit 34.3 % (36.0-47.0) L Mean Corpuscular Volume 92 fL (79-100) Mean Corpuscular Hemoglobin 31 pg (25-35) Mean Corpuscular Hemoglobin Concent 34 g/dL (31-37) Red Cell Distribution Width 15.2 % (11.5-14.5) H Platelet Count 248 x10^3/uL (140-400) Neutrophils (%) (Auto) 83 % (31-73) H Lymphocytes (%) (Auto) 11 % (24-48) L Monocytes (%) (Auto) 4 % (0-9) Eosinophils (%) (Auto) 2 % (0-3) Basophils (%) (Auto) 0 % (0-3) Neutrophils # (Auto) 9.8 x10^3/uL (1.8-7.7) H Lymphocytes # (Auto) 1.3 x10^3/uL (1.0-4.8) Monocytes # (Auto) 0.4 x10^3/uL (0.0-1.1) Eosinophils # (Auto) 0.2 x10^3/uL (0.0-0.7) Basophils # (Auto) 0.0 x10^3/uL (0.0-0.2) Sodium Level 142 mmol/L (136-145) Potassium Level 4.9 mmol/L (3.5-5.1) Chloride Level 105 mmol/L (98-107) Carbon Dioxide Level 30 mmol/L (21-32) Anion Gap 7 (6-14) Blood Urea Nitrogen 37 mg/dL (7-20) H Creatinine 1.3 mg/dL (0.6-1.0) H Estimated GFR (Cockcroft-Gault) 41.2 BUN/Creatinine Ratio 28 (6-20) H Glucose Level 207 mg/dL (70-99) H Calcium Level 9.2 mg/dL (8.5-10.1) Total Bilirubin 0.3 mg/dL (0.2-1.0) Aspartate Amino Transferase (AST) 13 U/L (15-37) L Alanine Aminotransferase (ALT) 17 U/L (14-59) Alkaline Phosphatase 98 U/L (46-116) Total Protein 6.6 g/dL (6.4-8.2) Albumin 3.2 g/dL (3.4-5.0) L Albumin/Globulin Ratio 0.9 (1.0-1.7) L Lipase 179 U/L (73-393) Urine Collection Type Unknown Urine Color Yellow Urine Clarity Cloudy Urine pH 5.5 (<5.0-8.0) Urine Specific [place] 1.015 (1.000-1.030) Urine Protein 30 mg/dL (NEG-TRACE) Urine Glucose (UA) Negative mg/dL (NEG) Urine Ketones (Stick) Negative mg/dL (NEG) Urine Blood Moderate (NEG) Urine Nitrite Negative (NEG) Urine Bilirubin Negative (NEG) Urine Urobilinogen Dipstick 0.2 mg/dL (0.2 mg/dL) Urine Leukocyte Esterase Large (NEG) Urine RBC 6-10 /HPF (0-2) Urine WBC Tntc /HPF (0-4) Urine Bacteria Few /HPF (0-FEW) Laboratory Tests 03/19/20 11:00 Laboratory Tests 03/19/20 11:00 Vital Signs: Vital Signs Date Time Temp Pulse Resp B/P (MAP) Pulse Ox O2 Delivery O2 Flow Rate FiO2 03/19/20 10:45 98.1 93 20 145/73 (97) 97 Room Air 98.1 EKG: EKG: [] Radiology/Procedures: Radiology/Procedures: [] Course & Med Decision Making: Course & Med Decision Making Patient reassessed at 1230. Patient clinically improved. Patient will be stable for discharge and outpatient follow-up. Patient stable to go back to [facility]. Patient will be placed on a different antibiotic as she still is a UTI. I will prescribe her Keflex. Pertinent Labs and Imaging studies reviewed. (See chart for details) [] Dragon Disclaimer: Dragon Disclaimer: This electronic medical record was generated, in whole or in part, using a voice recognition dictation system. Departure Departure Impression: Primary Impression: Nausea Disposition: HOME, SELF-CARE Condition: STABLE Referrals: NO PCP (PCP) go to [facility] now Patient Instructions: Nausea, Adult, Urinary Tract Infection Additional Instructions: EMERGENCY DEPARTMENT GENERAL DISCHARGE INSTRUCTIONS THANK YOU for coming to [facility] Emergency Department (ED) today and trusting us with your care. We trust that you had a positive experience in our Emergency Department. If you wish to speak to the department Management you can contact the education department chair at . YOUR FOLLOW UP INSTRUCTIONS ARE FOLLOWS: Do you have a private doctor? If you do not have a private doctor, please ask for a resource list of physicians or clinics that may be able to assist you with follow up care. The Emergency Physician has interpreted your x-rays. The X-ray specialist will also review them. If there is a change in the findings you will be notified in 48 hours when at all possible. A lab test or lab culture may have been done, your results will be reviewed and you will be notified if you need a change in treatment. ADDITIONAL INSTRUCTIONS AND INFORMATION Your care today has been supervised by a physician who is specially trained in emergency care. Many problems require more than one evaluation for a complete diagnosis and treatment. We recommend that you schedule your follow up appointment as recommended to ensure complete treatment of your illness or injury. If you are unable to obtain follow up care and continue to have a problem, or if your condition worsens we recommend that you return to the ED. We are not able to safely determine your condition over the phone nor are we able to give sound medical advice over the phone. For these safety reasons, if you call for medical advice we will ask you to come to the ED for further evaluation If you have any questions regarding these discharge instructions please call the ED at . SAFETY INFORMATION In the interest of safety, wellness, and injury prevention; we encourage you to wear your seatbelt, if you smoke; quit smoking, and we encourage your family to use protective helmet for bicycling and other sporting events that present an increased risk for head injury. IF YOUR SYMPTOMS WORSEN OR NEW SYMPTOMS DEVELOP, OR YOU HAVE CONCERNS ABOUT YOUR CONDITION; OR IF YOUR CONDITION WORSENS WHILE YOU ARE WAITING FOR YOUR FOLLOW UP APPOINTMENT; EITHER CONTACT YOUR PRIMARY CARE DOCTOR, THE PHYSICIAN WHOSE NAME AND NUMBER YOU WERE GIVEN, OR RETURN TO THE ED IMMEDIATELY. Scripts Ondansetron Hcl (ZOFRAN) 8 Mg Tablet 8 MG PO BID PRN for NAUSEA/VOMITING, #12 TAB Prov: NAGA GREGG MD 03/19/20 Cephalexin (KEFLEX) 500 Mg Capsule 500 MG PO QID for 7 Days, #28 CAP Prov: NAGA GREGG MD 03/19/20 Justicifation of Admission Dx: Justifications for Admission: Justification of Admission Dx: N/A NAGA GREGG MD Mar 19, 2020 12:22
[2020-03-19] MEDS ORDERED: ONDA8TAB9 PO (12:35)
[2020-03-19] MEDS ORDERED: CEPH-264 PO (12:35)
[2020-03-19 13:30] VITALS: BP 114/67
== END 2020-03-19 14:59 | disposition home or self-care (01) ==
LOC: ER 10:43
DX: E11.9 Type 2 diabetes mellitus without complications (principal); I10 Essential (primary) hypertension; E03.9 Hypothyroidism, unspecified; Z98.890 Other specified postprocedural states; Z88.1 Allergy status to other antibiotic agents
CPT/HCPCS: 36415; 80053; 81001; 83690; 85025; 87086; 96374; 99285; J2405; J7030

== ENCOUNTER → 2020-05-08 | Outpatient (CLI) | payer OTHER, MEDICAID ==
[~2020-05-08] MED LIST changes: +CEPH-264 PO; +ONDA8TAB9 PO
--- NOTE | 2020-05-08 15:21 | KCIC ---
EXAM: DUAL ENERGY X-RAY ABSORPTIOMETRY (DEXA). HISTORY: Postmenopausal screening. FINDINGS: The lowest measured T-score is 2.3 in the left hip, based on a bone mineral density of 1.224 g/cm^2. Refer to the worksheets for full detail. No comparison examinations are available. IMPRESSION: Normal. Bone mineral density yields a T-score of -1.0 or greater. Fracture risk is low. METHODOLOGY: Dual energy x-ray absorptiometry was performed to measure bone mineral density. The following analysis is based on the 2019 Official Positions of the International Society for Clinical Densitometry: Measurements of the hips and the average of L1-L4 are preferred. When the spine and/or hip cannot be feasibly measured or interpreted, or in the setting of hyperparathyroidism, distal radial bone mineral density may be measured. The lumbar spine T-score is based on the average bone mineral density of L1-L4. In the setting of artifact or anatomic abnormality, some lumbar levels may be excluded, and the remaining levels used for calculation. A single lumbar level is not used for diagnosis, and if only a single level is available for assessment, another anatomic site will be used to assign a diagnosis. The hip T-score is based on the bone mineral density measurement of the femoral neck or total proximal femur of either side, whichever is lowest. Bilateral mean values are not used for diagnosis. The forearm T-score is derived from 33% of the distal radius of the nondominant forearm. Electronically signed by: Demetra Ward MD (05/08/2020 3:18 PM) [id number]
== END ==
LOC: KCIC DEXA 13:04
PROVIDERS: ATTEND Nurse Practitioner Family
DX: Z78.0 Asymptomatic menopausal state (principal)
CPT/HCPCS: 77080